=== PATIENT | female | born 1955 | race African-American/Black ===

== ENCOUNTER 2018-02-13 17:25 | Emergency (ER) | payer OTHER, MEDICAID ==
[~2018-02-13] VITALS: Ht 157.5 cm; Wt 66.0 kg
[2018-02-13] MEDS ORDERED: LOSA1TAB37 MT (17:29)
[2018-02-13 18:40] LABS: BASOPHILS % 1.1 % (0.0-2.0); EOSINOPHILS % 1.5 % (0.0-5.0); HEMATOCRIT. 37.3 % (36.0-48.0); HEMOGLOBIN. 12.9 g/dL (12.0-16.0); LYMPHOCYTES % 34.6 % (20.0-50.0); MEAN CORPUSCULAR HEMOGLOBIN 29.8 pg (28.0-32.0); MEAN CORPUSCULAR VOLUME 85.9 fL (81.0-99.0); MEAN PLATELET VOLUME 8.2 fl (7.4-10.4); MONOCYTES % 7.2 % (2.0-8.0); NEUTROPHILS % 55.6 % (40.0-76.0); PLATELET 210 x1000/uL (130-400); RED BLOOD CELL COUNT 4.34 mill/uL (4.2-5.4); RED CELL DISTRIBUTION WIDTH 13.5 % (11.6-14.6)
[2018-02-13 18:45] LABS: CHLORIDE 101 mEq/L (98-107)
[2018-02-13 18:48] LABS: CLARITY URINE CLEAR (CLEAR); COLOR URINE YELLOW (YELLOW); KETONES URINE NEGATIVE (NEGATIVE); LEUKOCYTE ESTERASE URINE NEGATIVE (NEGATIVE); NITRITE URINE NEGATIVE (NEGATIVE); OCCULT BLOOD URINE NEGATIVE (NEGATIVE); PH URINE 7.5 (4.5-8.0); PROTEIN URINE NEGATIVE (NEGATIVE); SPECIFIC GRAVITY URINE 1.005 (1.005-1.030); UROBILINOGEN URINE 0.2 E.U./dL (0.2-1.0)
[2018-02-13 18:48] LABS: INR 1.1; PROTHROMBIN TIME 11.1 sec (9.4-11.6)
[2018-02-13 19:01] LABS: HCG SCREEN NEGATIVE
[2018-02-14] MEDS ORDERED: ACETAMINOPHEN 325MG TABLET PO ONE (00:30)
[2018-02-14 01:28] VITALS: BP 152/78
== END 2018-02-14 01:48 | disposition home or self-care (01) ==
LOC: ER 17:40
DX: R51 Headache (principal); I10 Essential (primary) hypertension; Z98.890 Other specified postprocedural states; Z88.8 Allergy status to other drugs, medicaments and biological substances
CPT/HCPCS: 36415; 71045; 80053; 81003; 84703; 85025; 85610; 93005; 99285